=== PATIENT | male | born 1945 | race Caucasian/White ===

== ENCOUNTER 2016-07-30 18:35 | Inpatient (IN) | payer OTHER, MEDICARE ==
[~2016-07-30] VITALS: Ht 177.8 cm; Wt 59.1 kg
[~2016-07-30 18:35] MED LIST: ACETAMINOPHEN500 MG PO; AMOX TR-K CLV1 EAC4 PO; ASPIR 8181 M1 PO; ATORVASTATIN CA10 MG PO; AUGMENTIN875 MG PO; AURAX OTIC SOLU14 ML LEFT EAR; B-COMPLEX-VITA1 EACH PO; BREO ELLIPTA I1 EACH IH; C COMPLEX500 MG PO; DAILY VALUE1 EACH PO; FLORASTOR250 MG PO; LEVAQUIN500 MG PO; LEVAQUIN750 MG PO; PREDNISONE10 M1 PO; PREDNISONE50 MG PO; PROAIR HFA8.5 GM IH; PROVENTIL,2.5 MG/3 M IH; TESSALON200 MG PO; VITAMIN D31000 UNIT PO
[2016-07-30 20:11] LABS: CHLORIDE 100 mEq/L (99-109); POTASSIUM 4.2 mEq/L (3.7-5.4); SODIUM 135 mEq/L (136-147)
[2016-07-30 20:12] LABS: HEMATOCRIT 43.3 % (38.0-50.0); MCH 31.5 PG (29.0-34.0); MCHC 33.7 G/DL (30.0-36.0); MCV 93.5 FL (86-99); MEAN PLAT.VOLUME 8.9 uM^3 (9.0-12.4); PLATELET COUNT 310 K/uL (156-360); RBC DIS.WIDTH-CV 13.8 % (11.8-14.6); RBC DIS.WIDTH-SD 46.9 % (39-53); RED BLOOD COUNT 4.63 M/uL (4.00-5.50); WHITE BLOOD COUNT 26.2 K/uL (4.1-10.2)
[2016-07-30 20:13] LABS: GLUCOSE 109 mg/dL (70-99)
[2016-07-30 20:14] LABS: ANION GAP 11 MEQ/L (2-14)
[2016-07-30 20:15] LABS: TOTAL BILIRUBIN 0.7 mg/dL (0.0-1.0)
[2016-07-30 20:17] LABS: ALKALINE PHOSPHATASE 76 IU/L (3-129); D-DIMER ELISA 0.58 mg/L FEU (< 0.57); GFR ESTIMATE (CALCULATED) > 59 mL/min/
[2016-07-30 20:18] LABS: UREA NITROGEN (BUN) 13 mg/dL (9-23)
[2016-07-30 20:20] LABS: LIPASE 7 U/L (1.0-51.0)
[2016-07-30 20:26] LABS: TROP-I INTERPRETATION NEGATIVE; TROPONIN-I < 0.01 ng/mL (0.0-0.30)
[2016-07-30 23:38] LABS: ADD MIUA? NO; BILIRUBIN NEGATIVE; BLOOD NEGATIVE; COLOR YELLOW ((YELLOW)); GLUCOSE (STRIP) NEGATIVE; KETONES 5; LEUKOCYTES NEGATIVE; NITRITE NEGATIVE; PROTEIN (STRIP) NEGATIVE; SPECIFIC GRAVITY 1.038 (1.000-1.030); UCUL ADDED? NO; UROBILINOGEN 0.2 MG/DL (0.2-1.0)
[2016-07-30] MEDS ORDERED: PREDNISONE5 MG PO (23:49)
[2016-07-31 01:53] VITALS: BP 135/58
[2016-07-31 04:13] VITALS: BP 132/63
[2016-07-31 04:26] LABS: TROP-I INTERPRETATION NEGATIVE; TROPONIN-I < 0.01 ng/mL (0.0-0.30)
[2016-07-31 07:35] VITALS: BP 115/65
[2016-07-31 08:57] LABS: HEMATOCRIT 41.2 % (38.0-50.0); MCH 31.5 PG (29.0-34.0); MCHC 33.5 G/DL (30.0-36.0); MCV 94.1 FL (86-99); MEAN PLAT.VOLUME 8.9 uM^3 (9.0-12.4); PLATELET COUNT 304 K/uL (156-360); RBC DIS.WIDTH-CV 14.2 % (11.8-14.6); RBC DIS.WIDTH-SD 48.7 % (39-53); RED BLOOD COUNT 4.38 M/uL (4.00-5.50); WHITE BLOOD COUNT 28.3 K/uL (4.1-10.2)
[2016-07-31 09:10] LABS: CHLORIDE 103 mEq/L (99-109); POTASSIUM 4.6 mEq/L (3.7-5.4); SODIUM 138 mEq/L (136-147)
[2016-07-31 09:11] LABS: GLUCOSE 132 mg/dL (70-99)
[2016-07-31 09:13] LABS: ANION GAP 10 MEQ/L (2-14)
[2016-07-31 09:15] LABS: GFR ESTIMATE (CALCULATED) > 59 mL/min/
[2016-07-31 09:16] LABS: UREA NITROGEN (BUN) 11 mg/dL (9-23)
[2016-07-31 09:20] LABS: TROP-I INTERPRETATION NEGATIVE; TROPONIN-I < 0.01 ng/mL (0.0-0.30)
[2016-07-31 12:11] VITALS: BP 101/57
[2016-07-31 16:14] VITALS: BP 102/54
[2016-07-31 19:50] VITALS: BP 108/57
[2016-08-01 00:13] VITALS: BP 96/51
[2016-08-01 04:10] VITALS: BP 102/57
[2016-08-01 07:21] LABS: HEMATOCRIT 35.1 % (38.0-50.0); MCH 31.3 PG (29.0-34.0); MCV 94.6 FL (86-99); MEAN PLAT.VOLUME 9.4 uM^3 (9.0-12.4); PLATELET COUNT 285 K/uL (156-360); RBC DIS.WIDTH-SD 48.6 % (39-53); RED BLOOD COUNT 3.71 M/uL (4.00-5.50); WHITE BLOOD COUNT 24.6 K/uL (4.1-10.2)
[2016-08-01 07:34] LABS: ALKALINE PHOSPHATASE 61 IU/L (3-129); ANION GAP 9 MEQ/L (2-14); CHLORIDE 102 MEQ/L (99-109); GFR ESTIMATE (CALCULATED) > 59 mL/min/; GLUCOSE 128 mg/dL (70-99); POTASSIUM 4.4 MEQ/L (3.7-5.4); SAMPLE HEMOLYSIS CHECK 0; SAMPLE ICTERIC CHECK 0; SAMPLE LIPEMIA CHECK 0; SODIUM 138 MEQ/L (136-147); TOTAL BILIRUBIN 0.3 MG/DL (0.0-1.0)
[2016-08-01 07:37] LABS: UREA NITROGEN (BUN) 21 mg/dL (9-23)
[2016-08-01 08:00] VITALS: BP 113/58
[2016-08-01] MEDS ORDERED: LEVAQUIN750 MG PO (10:04)
== END 2016-08-01 11:40 | disposition home or self-care (01) | DRG 189 ==
LOC: EME 18:35 → EDOF 07-31 01:12 → 2EAST 07-31 01:45
PROVIDERS: Internal Medicine; Physician Assistant
DX: J96.21 Acute and chronic respiratory failure with hypoxia (principal); J18.9 Pneumonia, unspecified organism; J44.1 Chronic obstructive pulmonary disease with (acute) exacerbation; E78.5 Hyperlipidemia, unspecified; D72.829 Elevated white blood cell count, unspecified; Z68.1 Body mass index [BMI] 19.9 or less, adult; Z87.891 Personal history of nicotine dependence; Z87.01 Personal history of pneumonia (recurrent)
CPT/HCPCS: 71020; 71275; 74177; 80048; 80053; 81003; 83605; 83690; 84484; 85027; 85379; 87040; 87070; 87205; 87449; 93005; 94640; 94640 76; 94664; 94760; 94799; 99202; 99281; 99285; J0456; J0696; J2405; J2920; J7030; J7050

== ENCOUNTER 2017-10-20 11:52 | Emergency (ER) | payer OTHER, MEDICARE ==
[~2017-10-20] VITALS: Ht 177.8 cm; Wt 53.5 kg
[~2017-10-20 11:52] MED LIST changes: +PREDNISONE5 MG PO
[2017-10-20] MEDS ORDERED: NEURONTIN300 MG PO (13:00)
[2017-10-20 13:24] VITALS: BP 121/87
== END 2017-10-20 13:25 | disposition home or self-care (01) ==
LOC: EME 11:52
DX: G89.29 Other chronic pain (principal); H92.02 Otalgia, left ear; G50.0 Trigeminal neuralgia; E78.5 Hyperlipidemia, unspecified; J44.9 Chronic obstructive pulmonary disease, unspecified; Z79.52 Long term (current) use of systemic steroids; Z79.82 Long term (current) use of aspirin; Z87.891 Personal history of nicotine dependence
CPT/HCPCS: 99281; 99283